=== PATIENT | female | born 1980 | race Caucasian/White ===

== ENCOUNTER 2016-08-02 17:31 | Emergency (ER) | END 2016-08-02 22:43 | disposition home or self-care (01) | DX: O26.891 Other specified pregnancy related conditions, first trimester (principal); R10.2 Pelvic and perineal pain; O99.511 Diseases of the respiratory system complicating pregnancy, first trimester; J45.909 Unspecified asthma, uncomplicated; R11.0 Nausea; Z3A.09 9 weeks gestation of pregnancy | CPT/HCPCS: 76801; 81003; 84702; 85025; 86900; 86901; Z7610 ==

== ENCOUNTER 2017-02-17 19:34 | Inpatient (IN) | payer OTHER ==
[~2017-02-17] VITALS: Ht 154.9 cm; Wt 83.8 kg
[~2017-02-17 19:34] MED LIST: ACET500C5 PO; CEPH-443 PO; HYDR-3498 PO; IBUPROFEN; ONDA4TAB8 PO
[2017-02-17 19:42] VITALS: Ht 154.9 cm; Wt 83.8 kg
[2017-02-17 19:44] VITALS: BP 149/86; PULSE 75; RESP 16
[2017-02-17] MEDS ORDERED: PRENAT PO (19:49)
[2017-02-17] MEDS ORDERED: FER325 PO (19:49)
[2017-02-17] MEDS ORDERED: CALC600T5 PO (19:49)
[2017-02-17 20:13] LABS: BASOPHILS % 0.4 % (0.0-2.0); EOSINOPHILS # 0.2 10^3/ul (0.0-0.5); EOSINOPHILS % 2.5 % (0.0-7.0); HEMATOCRIT 35.5 % (37.0-47.0); HEMOGLOBIN 11.6 g/dl (12.0-16.0); LYMPHOCYTES # 1.6 10^3/ul (0.8-2.9); LYMPHOCYTES % 23.4 % (15.0-51.0); MEAN CORPUSCULAR HEMOGLOBIN 27.4 pg (29.0-33.0); MEAN CORPUSCULAR HGB CONC 32.7 g/dl (32.0-37.0); MEAN CORPUSCULAR VOLUME 83.9 fl (82.0-101.0); MONOCYTE # 0.5 10^3/ul (0.3-0.9); MONOCYTES % 7.6 % (0.0-11.0); NEUTROPHIL # 4.4 10^3/ul (1.6-7.5); NEUTROPHILS % 65.7 % (39.0-77.0); PLATELET COUNT 236 10^3/UL (140-415); RED BLOOD COUNT 4.23 10^6/ul (4.20-5.40); WHITE BLOOD COUNT 6.7 10^3/ul (4.8-10.8)
[2017-02-17 20:28] LABS: ADD UMIC YES; UR ASCORBIC ACID NEGATIVE (NEGATIVE); UR BACTERIA FEW /HPF (NONE SEEN); UR BILIRUBIN (Dip) NEGATIVE (NEGATIVE); UR BLOOD (Dip) NEGATIVE (NEGATIVE); UR CLARITY CLOUDY (CLEAR); UR COLOR YELLOW (YELLOW); UR GLUCOSE (Dip) NEGATIVE (NEGATIVE); UR KETONES (Dip) NEGATIVE (NEGATIVE); UR LEUKOCYTE ESTERASE (Dip) NEGATIVE Leu/ul (NEGATIVE); UR MUCUS FEW /HPF (NONE SEEN); UR NITRITE (Dip) NEGATIVE (NEGATIVE); UR RBC 2 /HPF (0-5); UR SPECIFIC GRAVITY (Dip) 1.024 (1.003-1.030); UR SQUAMOUS EPITHELIAL CELL MODERATE /HPF (FEW); UR TOTAL PROTEIN (Dip) 2+ mg/dl (NEGATIVE); UR UROBILINOGEN (Dip) NEGATIVE (NEGATIVE)
--- NOTE | 2017-02-17 20:29 | RADRPT ---
PROCEDURE: US OB biophysical profile. CLINICAL INDICATION: decreased movements, PIH TECHNIQUE: Multiple sonographic images of the pelvis were obtained. The images were reviewed on a PACS workstation. COMPARISON: No prior studies are available for comparison. FINDINGS: There is a single viable intrauterine gestation. Cardiac activity is present with 144 beats per min mohegan. There is a vertex presentation. The placenta is fundal. There is no evidence of placental abruption. There is a normal amount of amniotic fluid with an DWAYNE = 14.6 cm. Biophysical profile: movement 2/2 tone 2/2. breathing 2/2 DWAYNE 2/2 Total 02/15 RPTAT: AA . IMPRESSION: Normal biophysical profile. . .Quang King MD, Date Time Electronically viewed and signed by .Quang King MD, MD on 02/17/2017 20:29 .S/
[2017-02-17 20:32] LABS: ALBUMIN/GLOBULIN RATIO 1.06
[2017-02-17 20:38] LABS: ALBUMIN 3.4 g/dl (3.3-4.9); BILIRUBIN,INDIRECT 0.1 mg/dl (0-1.1); BILIRUBIN,TOTAL 0.1 mg/dl (0.2-1.3); CALCIUM 8.4 mg/dl (8.4-10.2); CREATININE 0.96 mg/dl (0.44-1.00); POTASSIUM 4.4 mmol/L (3.5-5.1); TOTAL PROTEIN 6.6 g/dl (6.1-8.1)
[2017-02-17] MEDS ORDERED: OXYTOCIN 30 UNITS/LR 500 ML IV PRN (21:30)
[2017-02-17] MEDS ORDERED: CEFAZOLIN 2 GM/50 ML (PMX) 50 ML IV SCH (21:30)
[2017-02-17] MEDS ORDERED: OXYTOCIN 30 UNITS/LR 500 ML IV SCH (21:30)
[2017-02-17] MEDS ORDERED: CARBOPROST 250 MCG INJ IM PRN (21:30)
[2017-02-17] MEDS ORDERED: MISOPROSTOL 200 MCG TAB PR PRN (21:30)
[2017-02-17] MEDS ORDERED: METHYLERGONOVINE 0.2 MG INJ IM PRN (21:30)
--- NOTE | 2017-02-17 21:48 | TRIAGE ---
OB Triage Datetime Report Generated by CPN: 02/17/2017 21:48 Datetime: 02/17/2017 21:24 Labor Evaluation Frequency: OCC Monitor Mode: External Duration (sec)2399: 50-90 Quality: Mild Pattern: Normal: <= 5 Contractions in 10 Minutes Resting Tone Hennessey: Relaxed Contraction Comments: IRRITABILITY NOTED Heart Rate FHR Baseline Rate: 135 Monitor Mode: External US Variability: Moderate 6-25 bpm Accelerations: 15X15 Decelerations: None Category: Category I Datetime: 02/17/2017 21:19 Comments: loss of contact. pt moving in bed Datetime: 02/17/2017 20:50 Stage of : Labor Datetime: 02/17/2017 20:44 Maternal Assessment Level of Consciousness: Fully Conscious DTR's/Clonus: DTRs 2+; No Clonus Headache: Denies Blurred Vision: No Nausea/Vomiting: Denies RUQ Epigastric Pain: Denies Lower Extremities Edema: Bilateral Lower Extremities Degree: 1+ Upper Extremities Edema: None Degree: None Facial Edema: None Datetime: 02/17/2017 20:30 Stage of : OB Triage Labor Evaluation Frequency: OCC Monitor Mode: External Duration (sec)2399: 50-120 Quality: Mild Pattern: Normal: <= 5 Contractions in 10 Minutes Resting Tone Hennessey: Relaxed Contraction Comments: PT DENIES FEELING OF ANY UC'S Heart Rate FHR Baseline Rate: 130 Monitor Mode: External US Variability: Moderate 6-25 bpm Accelerations: 15X15 Decelerations: None Comments: PERIODS OF MINIMAL VARIABILITY Vaginal Exam Membrane Status: Intact Datetime: 02/17/2017 19:44 Stage of : OB Triage Assessment Type: Triage Maternal Assessment Level of Consciousness: Fully Conscious DTR's/Clonus: DTRs 2+; No Clonus Headache: Denies Blurred Vision: No Respiratory Effort: Unlabored; Regular Rhythm; Equal Expansion Breath Sounds, Left: Clear and Equal Breath Sounds, Right: Clear and Equal Nausea/Vomiting: Denies RUQ Epigastric Pain: Denies Lower Extremities Edema: Bilateral Lower Extremities Degree: 1+ Upper Extremities Edema: None Degree: None Facial Edema: None Temperature Route: Oral Fall Risk Assessment History of Falling: (0) No Secondary Diagnosis: (0) No Ambulatory Aid: (0) Bedrest/Nurse Assist IV Therapy: (0) No Gait: (0) Normal/Bedrest/Immobile Mental Status: (0) Oriented to Own Ability Fall Score: 0 Fall Risk Score Definition: No Risk: No action required Pain Assessment Pain Scale: 0 Pain Presence: None/Denies Pain Type: N/A Datetime: 02/17/2017 19:42 Stage of : OB Triage Datetime: 02/17/2017 19:38 Time of Arrival: 02/17/2017 19:25 EGA: 38.2 Arrived By: Ambulatory Arrived From: Office Chief Complaint: CAME FROM CLINIC; R/O PIH 2+ URINE IN PROTEIN IN CLINIC W/ ORDERS FOR CMC, CMP, U /A _ BPP Movement: Present Contractions: Denies/Absent Rupture of Membranes: Denies Vaginal Bleeding: None Vaginal Discharge: Denies Recent Sexual Intercouse: Denies Abdominal Trauma: Not Applicable Patient Complaints: None Time Provider Notified: 02/17/2017 20:50 Provider Notified: ALBAN Initial Plan: CBC; CMP; UA; BPP Datetime: 02/17/2017 19:35 Stage of : OB Triage Datetime: 02/17/2017 19:25 Time of Arrival: 02/17/2017 19:25 Arrived By: Ambulatory Arrived From: Office
[2017-02-17 22:19] LABS: INR 0.88; PROTIME 11.9 Sec (12.2-14.2); PT RATIO 0.9
[2017-02-17 22:20] LABS: PARTIAL THROMBOPLASTIN TIME 26.9 Sec (25.0-35.0)
[2017-02-17] MEDS: LACTATED RINGER'S 1,000 ML IV SCH (23:36)
[2017-02-18] VITALS (7 sets, daily range): BP systolic 117–143; BP diastolic 63–85; PULSE 60–77; RESP 18–20
[2017-02-18] MEDS: LACTATED RINGER'S 1,000 ML IV SCH ×3 (05:50→23:43)
[2017-02-18] MEDS ORDERED: OXYTOCIN 30 UNITS/LR 500 ML BAG IV ONE (07:00)
[2017-02-18] MEDS ORDERED: MAGNESIUM SULFATE 4 GM/100 ML 100 ML ONE (09:14)
[2017-02-18] MEDS ORDERED: MAGNESIUM SULFATE 20 GM/500 ML 500 ML IV SCH ×2 (09:30→17:17)
[2017-02-18] MEDS ORDERED: MAGNESIUM SULFATE 4 GM/100 ML 100 ML IVPB ONE (09:30)
[2017-02-18] MEDS ORDERED: ONDANSETRON 4 MG INJ IV ONE (11:00)
[2017-02-18] MEDS ORDERED: ALBUTEROL 0.083% (NEB) 2.5 MG/3 ML AMP HHN PRN ×2 (11:00→14:30)
[2017-02-18] MEDS ORDERED: CITRIC ACID/NA CITRATE 30 ML CUP PO ONE (11:00)
[2017-02-18] MEDS ORDERED: ALBUTEROL 18 GM INHALER INH PRN (11:30)
[2017-02-18] MEDS ORDERED: PHENYLephrine (100 MCG/ML) 5ML SYG ONE (13:15)
[2017-02-18] MEDS ORDERED: morphine SULFATE/PF (10 MG/10 ML) INJ ONE (13:15)
[2017-02-18] MEDS ORDERED: OXYTOCIN 10 UNIT INJ ONE (13:15)
[2017-02-18] MEDS ORDERED: METOCLOPRAMIDE 10 MG INJ ONE (13:41)
[2017-02-18] MEDS ORDERED: DEXAMETHASONE 4 MG/ML 1 ML INJ ONE (13:41)
[2017-02-18] MEDS ORDERED: KETOROLAC 30 MG INJ ONE (13:41)
[2017-02-18] MEDS ORDERED: morphine 2 MG INJ IV PRN (14:00)
[2017-02-18] MEDS ORDERED: NALOXONE (0.4 MG/ML) INJ IV PRN (14:00)
[2017-02-18] MEDS ORDERED: NALBUPHINE HCL (10 MG/1 ML) INJ IV PRN (14:00)
[2017-02-18] MEDS ORDERED: HYDROmorphONE 1 MG/ML SYG IV PRN ×2 (14:00)
[2017-02-18] MEDS ORDERED: morphine 4 MG/ML VIAL IV PRN (14:00)
[2017-02-18] MEDS ORDERED: DIPHENHYDRAMINE 50 MG INJ IV PRN (14:00)
[2017-02-18] MEDS ORDERED: ONDANSETRON 4 MG INJ IV PRN (14:00)
[2017-02-18] MEDS ORDERED: HYDROCODONE/APAP (5/325) TAB PO PRN (14:00)
[2017-02-18] MEDS ORDERED: ACETAMINOPHEN 500 MG TAB PO PRN (14:00)
[2017-02-18] MEDS ORDERED: MEPERIDINE 100 MG INJ ONE (14:07)
--- NOTE | 2017-02-18 14:20 | HP ---
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 Blood Type: O+ Rubella: immune RPR/VDRL: Negative GBS Status: Negative HBsAG: Negative OB Admission Exam Vital Signs Vital Signs Vital Signs Date Time Temp Pulse Resp B/P Pulse Ox O2 Delivery O2 Flow Rate FiO2 02/18/17 11:21 62 16 95 21 02/17/17 19:44 98.4 149/86 Room Air Physical Exam HEENT: WNL Heart: Rhythm Normal Lungs: Clear, Equal Abdomen: WNL Extremities: Normal Reflexes: Normal Cervical Dilatation: None Effacement: 0% Station: -3 Membranes: Intact Amniotic Fluid: Thin Meconium Heart Rate: 130's Accelerations: Accelerations Present Decelerations: Variable Decelerations Varibility: Moderate Contractions on Admission: 6-10 Minutes Apart Date/Time Contractions Began: ? Frequency of Contractions: ? Duration: ? Last 72 hours Lab Results CBC & BMP 02/17/17 20:00 Liver Function Test 02/17/17 20:00 Alanine Aminotransferase (ALT/SGPT) 31 Albumin 3.4 Alkaline Phosphatase 207 H Aspartate Amino Transf (AST/SGOT) 20 Direct Bilirubin 0.00 Total Protein 6.6 OB Assessment/Plan Reason for admission: section Other Assessment: Term gestation Previous 2 -induced hypertension Other plan: Repeat section REYNALDO KAUR MD Feb 18, 2017 14:20
--- NOTE | 2017-02-18 14:23 | OPR ---
Operative Report Planned Procedure Procedure date Feb 18, 2017 Procedure(s) Repeat section Performed by: REYNALDO KAUR MD Assisting provider: BRONWYN OBANDO MD Anesthesiologist: RAFAEL ZEPEDA MD Pre-procedure diagnosis Term gestation Previous 2 -induced hypertension Anesthesia Type: spinal Procedure Description Under satisfactory anaesthesia a Pfannenstiel incision was made two fingerbreadth above and parallel to the symphysis of pubis around the previous scar and previous scar was removed Incision was extended laterally to the border of the Recti muscles on either sides. Incision was carried down with sharp and blunt dissection until fascia was reached. Anterior Recti muscle fascia was incised in mid portion and incision extended laterally to the border of skin incision. Fascia was mobilized from muscle superiorly and Recti muscles were from midline using sharp and blunt dissection. Peritoneum was visualized; Avoiding bowel and bladder it was incised . Incision was extended superiorly and inferiorly. Bladder blade was placed. Posterior peritoneum covering the lower segment of the uterus and lower segment of the uterus were incised.Low transverse uterine incision was made on lower segment of the uterus. Incision extended laterally to the border of Round Lig. on either sides and baby was delivered from OT. position . Amniotic fluid appeared clear. Cord blood was obtained and cord had 3 vessels . Placenta was delivered spontaneously and appeared intact and complete. Intrauterine cavity was rubbed with a laparotomy sponge. Uterine incision was closed in 2 layers using running stitches of No1 Monocryl. Hemostasis appeared secure. Ovaries and Fallopian tubes were within normal limits. Announcing needle, lap sponge and instrument count to be correct abdomen was closed in layers as follows: Peritoneum and Recti muscles with running stitches of 20 Vicryl. Fascia with running stitch of No 1 PDS. Subcutaneous tissue with running stitches of 20 Chromic and skin was closed using marlene. Patient tolerated the procedure well and was transferred to [facility] in good condition. Post-Procedure Post-procedure diagnosis Status post repeat Findings: Live Baby Clear amniotic fluid Normal right and left fallopian tubes Specimen removed: No Complications: None Pt Condition post procedure: stable Disposition: PACU Physician Certification I, the undersigned physician, hereby certify that I have discussed the procedure described in this consent form with this patient (or the patient's legal employee representative), including: * The risk and benefits of the procedure; * Any adverse reactions that may reasonably be expected to occur; * Any alternative efficacious methods of treatment which may be medically viable ; * The potential problems that may occur during recuperation; * Potential for blood transfusion and associated risks/benefits; and * Any research or economic interest I may have regarding this treatment. I further certify that the patient/legally responsible person was encouraged to ask question and that all questions were answered. REYNALDO KAUR MD Feb 18, 2017 14:23
[2017-02-18] MEDS ORDERED: LANOLIN 7 GM TUBE TOP PRN (17:30)
[2017-02-18] MEDS: CEFAZOLIN 2 GM/50 ML (PMX) 50 ML IV SCH (17:30)
[2017-02-18] MEDS ORDERED: NA PHOSPHATE/BIPHOS 133 ML ENEMA PR PRN (17:30)
[2017-02-18] MEDS ORDERED: MISOPROSTOL 200 MCG TAB PR PRN (17:30)
[2017-02-18] MEDS ORDERED: METHYLERGONOVINE 0.2 MG INJ IM PRN (17:30)
[2017-02-18] MEDS ORDERED: OXYTOCIN 30 UNITS/LR 500 ML IV PRN (17:30)
[2017-02-18] MEDS ORDERED: CARBOPROST 250 MCG INJ IM PRN (17:30)
[2017-02-18] MEDS ORDERED: OXYCODONE/ACETAMINOPHEN (5/325) TAB PO PRN (17:30)
[2017-02-18] MEDS: CLINDAMYCIN 300 MG CAP PO SCH ×2 (18:00→23:41)
[2017-02-18] MEDS: SENNA/DOCUSATE NA (8.6MG/50MG) TAB PO SCH (21:40)
[2017-02-19] VITALS (15 sets, daily range): BP systolic 103–137; BP diastolic 47–87; PULSE 64–89; RESP 18–20
--- NOTE | 2017-02-19 01:31 | OPPN ---
Date/Time of Note Date/Time of Note DATE: 02/19/17 TIME: 01:31 Post-Anesthesia Notes Post-Anesthesia Note Last documented vital signs Vital Signs Date Time Temp Pulse Resp B/P Pulse Ox O2 Delivery O2 Flow Rate FiO2 02/18/17 23:30 98.2 66 20 120/69 Room Air 02/18/17 11:21 95 21 Activity: WNL Respiratory function: WNL Cardiovascular function: WNL Mental status: Baseline Pain reasonably controlled: Yes Hydration appropriate: Yes Nausea/Vomiting absent: Yes RAFAEL ZEPEDA MD Feb 19, 2017 01:31
[2017-02-19] MEDS: CEFAZOLIN 2 GM/50 ML (PMX) 50 ML IV SCH ×3 (01:55→17:20)
[2017-02-19] MEDS: KETOROLAC 30 MG INJ IV PRN ×2 (05:35→12:57)
[2017-02-19] MEDS: CLINDAMYCIN 300 MG CAP PO SCH ×4 (05:35→23:31)
[2017-02-19 08:19] LABS: BASOPHILS % 0.2 % (0.0-2.0); EOSINOPHILS % 0.2 % (0.0-7.0); HEMATOCRIT 30.4 % (37.0-47.0); HEMOGLOBIN 9.7 g/dl (12.0-16.0); LYMPHOCYTES # 1.6 10^3/ul (0.8-2.9); LYMPHOCYTES % 14.3 % (15.0-51.0); MEAN CORPUSCULAR HEMOGLOBIN 27.1 pg (29.0-33.0); MEAN CORPUSCULAR HGB CONC 31.9 g/dl (32.0-37.0); MEAN CORPUSCULAR VOLUME 84.9 fl (82.0-101.0); MEAN PLATELET VOLUME 10.3 fl (7.4-10.4); MONOCYTE # 0.7 10^3/ul (0.3-0.9); MONOCYTES % 6.8 % (0.0-11.0); NEUTROPHIL # 8.4 10^3/ul (1.6-7.5); NEUTROPHILS % 77.9 % (39.0-77.0); PLATELET COUNT 218 10^3/UL (140-415); RED BLOOD COUNT 3.58 10^6/ul (4.20-5.40); RED CELL DISTRIBUTION WIDTH 17.2 % (11.5-14.5); WHITE BLOOD COUNT 10.8 10^3/ul (4.8-10.8)
[2017-02-19] MEDS: LACTATED RINGER'S 1,000 ML IV SCH ×2 (09:17→09:44)
[2017-02-19] MEDS: SENNA/DOCUSATE NA (8.6MG/50MG) TAB PO SCH ×2 (09:39→21:00)
[2017-02-19] MEDS ORDERED: BISACODYL 10 MG SUPP PR ONE (10:30)
[2017-02-19] MEDS ORDERED: ALBUTEROL 0.083% (NEB) 2.5 MG/3 ML AMP HHN PRN (13:30)
[2017-02-19] MEDS: MAGNESIUM SULFATE 20 GM/500 ML 500 ML IV SCH (13:40)
[2017-02-19] MEDS: IBUPROFEN 800 MG TAB PO SCH ×2 (14:00→22:32)
--- NOTE | 2017-02-19 18:22 | PN ---
Date/Time of Note Date/Time of Note DATE: 02/19/17 TIME: 18:20 Assessment/Plan VTE Prophylaxis VTE Prophylaxis Intervention: ambulation Lines/Catheters IV Catheter Type (from Nrsg): Peripheral IV Assessment/Plan Assessment/Plan Postop day 1 status post repeat -induced hypertension, blood pressures currently are stable We will advance diet, ambulate Monitor vital signs Magnesium sulfate was DC'd Subjective 24 Hr Interval Summary Passing flatus No bowel movement Constitutional: BM, ambulates, flatus, improved, no complaints, urine output Pain Control: well controlled Exam/Review of Systems Vital Signs Vitals Vital Signs Date Time Temp Pulse Resp B/P Pulse Ox O2 Delivery O2 Flow Rate FiO2 02/19/17 16:00 98.2 74 18 129/47 Room Air 02/19/17 13:36 95 21 Intake and Output 02/18/17 02/18/17 02/19/17 15:00 23:00 07:00 Intake Total 1450 ml 525 ml 1075 ml Output Total 1500 ml 700 ml 1000 ml Balance -50 ml -175 ml 75 ml Exam Free Text/Dictation Abdomen is soft bowel sounds present Abdomen is tender around incision Incision is covered Constitutional: alert, oriented, well developed Psych: nl mood/affect, no complaints Head: atraumatic, normocephalic Eyes: EOMI, nl conjunctiva, nl lids, nl sclera ENMT: mucosa pink and moist, nl external ears & nose, nl lips & teeth, nl nasal mucosa & septum Neck: non-tender, supple Respiratory: clear to auscultation, normal air movement Cardiovascular: nl pulses, regular rate and rhythm Gastrointestinal: nl liver, spleen, non-tender, soft Drains None Musculoskeletal: nl extremities to inspection, nl gait and stance Extremities: normal pulses Neurological: COMMUNITY RELATIONS LIAISON II-XII intact, nl mental status, nl speech, nl strength Skin: nl turgor, rash or lesions Lymph: nl lymph nodes Results Result Diagram: 02/19/17 0744 02/17/171999 REYNALDO KAUR MD Feb 19, 2017 18:22
[2017-02-20 04:30] VITALS: BP_SYST 136; BP_SYST 141; BP_DIAS 66; BP_DIAS 93; PULSE 69; PULSE 80; RESP 18
[2017-02-20] MEDS: CLINDAMYCIN 300 MG CAP PO SCH ×4 (05:45→23:44)
[2017-02-20] MEDS: IBUPROFEN 800 MG TAB PO SCH ×3 (05:45→21:37)
[2017-02-20 08:00] VITALS: BP 99/56; PULSE 72; RESP 16
[2017-02-20] MEDS: SENNA/DOCUSATE NA (8.6MG/50MG) TAB PO SCH ×2 (09:00→21:37)
[2017-02-20] MEDS: MAGNESIUM SULFATE 20 GM/500 ML 500 ML IV SCH (09:07)
[2017-02-20 15:30] VITALS: BP 140/83; PULSE 74; RESP 18
[2017-02-20] MEDS: HYDROCODONE/APAP (5/325) TAB PO PRN ×3 (15:30→23:44)
--- NOTE | 2017-02-20 16:49 | DS ---
Date/Time of Note Date/Time of Note Home next day DATE: 02/20/17 TIME: 16:48 Obstetrical Discharge Record Final Diagnosis Final Diagnosis: Term delivered Other Final Diagnosis Status post repeat Section Section: Repeat Condition on Discharge Physical Assessment Last Vitals: See nurse's note Voiding: Yes Bowel Movement: Yes Breast: Soft, non-tender, Filling Fundus: Firm Abdomen and Incision: Soft bowel sounds present Incision healing well, without induration or erythema Episiotomy: Not applicable Calf Tenderness: No Patient Condition: Good REYNALDO KAUR MD Feb 20, 2017 16:49
--- NOTE | 2017-02-20 16:50 | DS ---
Date/Time of Note Date/Time of Note DATE: 02/20/17 TIME: 16:49 Discharge Summary Admission/Discharge Info Admit Date/Time Feb 17, 2017 at 20:50 Discharge Date/Time February 21, 2017 Discharge Diagnosis Status post repeat Patient Condition: Good Procedures Repeat Hx of Present Illness 36-year-old female had repeat Hospital Course Uncomplicated Home Meds Reported Medications Calcium Carbonate (CALCIUM) 600 Mg Tablet, PO, TAB 02/17/17 Ferrous Sulfate* (Ferrous Sulfate*) 325 Mg Tabec, 325 MG PO DAILY, TAB 02/17/17 Multivit/Min/Fol Ac/Iron/Pren* ( S*) 1 Tab Tab, 1 TAB PO DAILY, TAB 02/17/17 Discontinued Reported Medications [Ibuprofen] No Conflict Check 04/16/11 Discontinued Scripts Ondansetron Hcl* (Zofran*) 4 Mg Tablet, 4 MG PO Q6H for NAUSEA AND/OR VOMITING, #30 TAB Prov:GOLDY CURRIE PA-C 08/02/16 Acetaminophen* (Tylophen*) 500 Mg Capsule, 1 CAP PO Q6H Y for PAIN AND OR ELEVATED TEMP, #30 CAP Prov:GOLDY CURRIE PA-C 08/02/16 Hydrocodone Bit-Acetaminophen* (Scott*) 5-325 Mg Tab, 1 TAB PO Q6 Y for PAIN, # 7 TAB Prov:ANGELICA SALAS PA-C 01/16/16 Cephalexin* (Keflex*) 500 Mg Capsule, 500 MG PO BID for 7 Days, CAP Prov:BRIAN STROUD 04/02/15 Follow-up Plan 3 4 days in clinic for staple removal Primary Care Provider Francisco Yanez MD Time spent on discharge: > 30 minutes REYNALDO KAUR MD Feb 20, 2017 16:50
[2017-02-20] MEDS ORDERED: IBUP800T25 PO (16:51)
--- NOTE | 2017-02-20 16:51 | PD.PPDC ---
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
[2017-02-20 19:39] VITALS: BP 130/88; PULSE 69; RESP 18
[2017-02-21 04:00] VITALS: BP 120/59; PULSE 72; RESP 18
[2017-02-21] MEDS: HYDROCODONE/APAP (5/325) TAB PO PRN ×2 (05:04→12:47)
[2017-02-21] MEDS: MAGNESIUM SULFATE 20 GM/500 ML 500 ML IV SCH (05:07)
[2017-02-21] MEDS: IBUPROFEN 800 MG TAB PO SCH (05:43)
[2017-02-21] MEDS: CLINDAMYCIN 300 MG CAP PO SCH ×2 (05:43→11:59)
[2017-02-21 08:30] VITALS: BP 138/77; PULSE 76; RESP 16
[2017-02-21] MEDS ORDERED: DIPHTH/TET/ACEL PERTUSS (ADULT) 0.5 ML VIAL IM* ONE (09:00)
[2017-02-21] MEDS ORDERED: MEASLES,MUMPS,RUBELLA VACCINE INJ SC* ONE (09:00)
[2017-02-21] MEDS: SENNA/DOCUSATE NA (8.6MG/50MG) TAB PO SCH (09:59)
== END 2017-02-21 14:08 | disposition home or self-care (01) | DRG 766 ==
LOC: OBT 19:34 → L-D 19:36 → OBT 21:44 → L-D 02-18 13:23 → PP1 02-18 17:22
PROVIDERS: ADMIT Obstetrics & Gynecology; ATTEND Obstetrics & Gynecology
PROC: 10D00Z1 Extraction of Products of Conception, Low, Open Approach (ICD-10-PCS; principal; 2017-02-18 13:15)
DX: O13.5 Gestational [pregnancy-induced] hypertension without significant proteinuria, complicating the puerperium (principal); Z37.0 Single live birth; O34.211 Maternal care for low transverse scar from previous cesarean delivery; Z3A.38 38 weeks gestation of pregnancy
CPT/HCPCS: 76818; 80053; 81001; 83735; 85025; 85610; 85730; 86592; 86850; 86900; 86901; 90715; 94640; 94664; 99464; G0463; J0690; J1100; J1885; J2175; J2274; J2370; J2405; J2590; J2765; J3475; J7120